=== PATIENT | female | born 1985 | race African-American/Black ===

== ENCOUNTER → 2016-10-14 | Outpatient (CLI) | payer BC ==
--- NOTE | ~2016-10-14 | CR58 ---
[facility] A Service of [facility] & [facility] RADIOLOGY TEXT RESULTS PATIENT: ARELI MARTÍNEZ LOCATION: [facility] : 89 UNIT #: [id number] AGE: [address]: Opal Clrak MD SEX: F ORDER DR: [id number] [facility] [address] [place], [place] [address] [id number] O MR#: [id number] Acc #: [id number] NAME: ARELI MARTÍNEZ : 1985 SEX: F STUDY DATE/TIME: 10/14/2016 15:10 UNIT: [facility] ROOM: STUDY DESCRIPTION: CR Cervical Spine 2 or 3 Views Attending Physician: Opal Clark M.D. Referring Physician: Opal Clark M.D. Ordering Physician: Opal Clark M.D. Primary Care Physician: Opal Clark M.D. MEDICAL IMAGING REPORT This report is preliminary unless electronic signature is present EXAM Cervical spine 6 views 10/14/2016 HISTORY Neck pain for 3 weeks with bilateral upper extremity radiculopathy. No known injury. FINDINGS AP and lateral projections of the cervical spine show satisfactory preservation of the cervical lordosis. The cervical soft tissues are normal. All anterior and posterior elements in the cervical area are anatomically normal without identifiable fracture, dislocation, malignant lytic or sclerotic change, or arthritis. There is no congenital defect apparent. IMPRESSION Normal cervical spine. Dictated by... Eugene Ansari M.D. THIS IS AN ELECTRONICALLY VERIFIED REPORT Eugene Ansari M.D. at 10/17/2016 6:07 AM ROMAN/bolivar TD: 10/14/2016 20:59 JOB #: [id number] MEDICAL IMAGING REPORT Page 1 of 1 COPY
== END | disposition home or self-care (01) ==
LOC: CRAD 15:02
DX: M54.12 Radiculopathy, cervical region (principal)
CPT/HCPCS: 72040